=== PATIENT | female | born 1935 | race Hispanic/Latino ===

== ENCOUNTER 2017-11-28 18:08 | Emergency (ER) | payer MEDICARE, BC ==
[2017-11-28 18:19] VITALS: BP 162/75; PULSE 94; RESP 16; TEMP 98; O2SAT 98
--- NOTE | 2017-11-28 19:36 | C.PDOC ---
History Of Present Illness 81 y/o female brought to ED by family for bleeding from left foot; pt accidentally banged it against something ans started to bleed copiously. pt 's family applied pressure dressing to area. Time Seen by Provider: 11/28/17 18:14 Chief Complaint (Nursing): Abnormal Skin Integrity History Per: Patient, Family History/Exam Limitations: no limitations Onset/Duration Of Symptoms: Hrs (1) Location Of Injury: Left: Ankle Quality Of Symptoms: Other (bleeding) Past Medical History Reviewed: Historical Data, Nursing Documentation, Vital Signs Vital Signs: Last Vital Signs Temp 98 F 11/28/17 18:13 Pulse 94 H 11/28/17 18:13 Resp 16 11/28/17 18:13 BP 162/75 H 11/28/17 18:13 Pulse Ox 98 11/28/17 19:45 - Medical History PMH: HTN Other PMH: multiple myeloma Family History: States: Unknown Family Hx - Social History Hx Tobacco Use: No Hx Alcohol Use: No Hx Substance Use: No - Immunization History Hx Tetanus Toxoid Vaccination: No Hx Influenza Vaccination: No Hx Pneumococcal Vaccination: No Review Of Systems Constitutional: Negative for: Fever, Chills Skin: Positive for: Other (bleeding ) Physical Exam - Physical Exam Appears: Non-toxic, No Acute Distress, Other Skin: Warm, Dry Extremity: No Pedal Edema, Other (bloody soaked through dressing on left ankle. ) Pulses: Left Dorsalis Pedis: Normal Neurological/Psych: Oriented x3, Normal Speech, Normal Cognition ED Course And Treatment O2 Sat by Pulse Oximetry: 98 Medical Decision Making Medical Decision Making: bleeding from left ankle. additional pressure dressing applied over one already on wound. after 20 minutes, all dressings removed; 2 punctate areas seen on lateral ankle. (varicosities) with no active bleeding. clean gauze and mirlande bandage applied and left foot elevated. after approximately one hour observation, no bleeding through dressing. will d/c Disposition Counseled Patient/Family Regarding: Diagnosis, Need For Followup - Disposition Disposition: HOME/ ROUTINE Disposition Time: 19:43 Condition: GOOD Additional Instructions: Please keep dressing on until tomorrow. Keep left foot elevated when possible. If bleeding starts again, apply pressure dressing. Follow up with your doctor in 1-2 days. 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
== END 2017-11-28 19:45 | disposition home or self-care (01) ==
LOC: C.ER 18:08
DX: I83.892 Varicose veins of left lower extremity with other complications (principal)